=== PATIENT | female | born 1950 | race Caucasian/White ===

== ENCOUNTER → 2024-06-18 09:15 | Outpatient (REF) | payer MEDICARE, BC, SELFPAY | LOC: HWRAD 09:15 | PROVIDERS: ATTENDING PHYSICIAN Otolaryngology; FAMILY PHYSICIAN Family Medicine | DX: R22.1 Localized swelling, mass and lump, neck (principal) | CPT/HCPCS: 70491; Q9967 ==

== ENCOUNTER → 2024-08-08 12:58 | Outpatient (REF) | payer MEDICARE, BC, SELFPAY | LOC: HWRAD 12:58 | PROVIDERS: ATTENDING PHYSICIAN Otolaryngology; FAMILY PHYSICIAN Family Medicine | DX: D11.0 Benign neoplasm of parotid gland (principal) | CPT/HCPCS: 76536 ==

== ENCOUNTER → 2024-08-21 08:26 | Outpatient (REF) | payer MEDICARE, BC, SELFPAY ==
[2024-08-21 08:49] VITALS: BP 156/72; BP_SYST 74
== END ==
LOC: RADI 08:26
PROVIDERS: ATTENDING PHYSICIAN Otolaryngology; FAMILY PHYSICIAN Family Medicine
DX: D11.0 Benign neoplasm of parotid gland (principal)
CPT/HCPCS: 88173; 88305; 42400; 76942

== ENCOUNTER → 2024-10-31 12:12 | Day surgery (SDC) | payer MEDICARE, BC, SELFPAY ==
[2024-10-31 14:08] LABS: Hematocrit 40.1 % (37.0-47.0); Hemoglobin 12.9 g/dL (12.0-16.0); Mean Corp Hgb Conc. 32.2 g/dL (33.0-37.0); Mean Corpuscular Volume 93.3 fL (81.0-99.0); Mean Platelet Volume 11.4 fL (7.4-10.4); Platelet Count 205 10^3/uL (130-400); Red Cell Dist. Width 13.4 % (11.5-14.5); White Blood Cell Count 8.7 10^3/uL (4.8-10.8)
== END ==
LOC: SDSPAT 12:12
PROVIDERS: ATTENDING PHYSICIAN Otolaryngology; FAMILY PHYSICIAN Family Medicine
DX: Z01.810 Encounter for preprocedural cardiovascular examination (principal); Z01.812 Encounter for preprocedural laboratory examination
CPT/HCPCS: 93005; 36415; 85027

== ENCOUNTER 2024-11-14 06:30 | Day surgery (SDC) | payer MEDICARE, BC, SELFPAY ==
[2024-10-31 13:17] VITALS: BMI 33.7
[2024-11-14] VITALS (8 sets, daily range): BP systolic 111–137; BP diastolic 47–65; BMI 33.7
[2024-11-14] MEDS: DUONEB 3 ML INH (07:44)
[2024-11-14] MEDS: NORMOSOL-R/PLASMALYTE-A 1000 IV (07:46)
== END 2024-11-14 12:41 | disposition home or self-care (01) ==
LOC: SDS 06:30
PROVIDERS: ATTENDING PHYSICIAN Otolaryngology; FAMILY PHYSICIAN Family Medicine
DX: D11.0 Benign neoplasm of parotid gland (principal)
CPT/HCPCS: 42415; 88307; 94640